=== PATIENT | female | born 1975 | race Caucasian/White ===

== ENCOUNTER 2025-03-22 07:45 | Day surgery (SDC) | payer MEDICAID, SELFPAY ==
--- NOTE | 2025-03-11 14:43 | ESHP_ITS ---
RE: CODY LUJAN : 1975 DATE OF ADMISSION: 03/22/2025 HISTORY OF PRESENT ILLNESS: This is a 49-year-old 2, para 2 who has abnormal uterine bleeding and an endometrial polyp, who presents for surgical removal and endometrial ablation. ALLERGIES: NO KNOWN DRUG ALLERGIES. MEDICATIONS: Ozempic 0.25 mg subcutaneously weekly. PAST MEDICAL HISTORY: Type 2 diabetes mellitus, genuine stress urinary incontinence. SOCIAL HISTORY: She is . She is a smoker. She denies any alcohol or drug use. PAST MEDICAL HISTORY: Anxiety, gastroesophageal reflux disease, seasonal allergies, obesity, hypertension. OBSTETRIC HISTORY: Two previous full-term normal vaginal deliveries. PAST SURGICAL HISTORY: Denies. REVIEW OF SYSTEMS: She denies any chest pain, palpitations, cough, fever, shortness of breath or lower extremity pain. PHYSICAL EXAMINATION: VITAL SIGNS: Blood pressure 144/76, heart rate 78, respirations 18, temperature 98.6. Weight 236 pounds. HEENT: Oropharynx and sclerae are clear. LUNGS: Clear to auscultation bilaterally. HEART: Regular rate and rhythm. ABDOMEN: No scars noted. EXTREMITIES: Nontender. SKIN: No gross rashes or lesions. NEUROLOGIC: No focal deficit. ASSESSMENT AND PLAN: Abnormal uterine bleeding and endometrial polyp. PLAN: Hysteroscopy, MyoSure removal of endometrial polyp, fractional dilatation and curettage, NovaSure endometrial ablation. Informed consent was obtained. The patient was made aware of the risks, complications, alternatives, benefits of the proposed procedure, and she agrees. She is aware of the risk of injury to bowel and bladder, adjacent organs, pulmonary embolism, deep vein thrombosis, pelvic infection, reoperation to repair injury to internal organs, anesthesia complications, the possibility that laparotomy needs to be performed to repair organs or control bleeding and the possibility the procedure is not able to be completed due to severe adhesions or technical difficulties. DT: 12:36:33 TT: 14:41:00 Ref: [id number] - TID: [id number] MTDD
[2025-03-21 07:51] VITALS: BMI 40.7
--- NOTE | 2025-03-21 08:14 | EKG_ITS ---
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
[2025-03-21 09:50] LABS: Basophils # (Auto) 0.1 Thou/mm3 (0.0-0.2); Basophils % (Auto) 1 % (0-2.5); Eosinophils # (Auto) 0.4 Thou/mm3 (0.0-0.5); Eosinophils % (Auto) 4 % (0-10); Hematocrit 40.1 % (36.0-46.0); Hemoglobin 13.9 g/dL (12.0-16.0); Immature Granulocytes Auto 0.04 Thou/mm3 (0.00-0.00); Lymphocytes # (Auto) 2.2 Thou/mm3 (1.0-4.8); Lymphocytes % (Auto) 22 % (10-50); Mean Corpuscular HGB Conc 34.7 g/dl (31.0-37.0); Mean Corpuscular Hemoglobin 31.7 pg (25.0-35.0); Mean Corpuscular Volume 91 fL (80-100); Monocytes # (Auto) 0.7 Thou/mm3 (0.0-0.8); Monocytes % (Auto) 7 % (0-12); Neutrophils # (Auto) 6.5 Thou/mm3 (1.8-7.7); Neutrophils % (Auto) 65 % (37-80); Nucleated Red Blood Cell # 0.00 Thou/mm3 (0.00-0.00); Nucleated Red Blood Cell % 0 /100 WBC (0); Platelet Count 278 Thou/mm3 (140-440); RDW Standard Deviation 41.0 fL (36.4-46.3); Red Blood Count 4.39 Miln/mm3 (4.00-5.20); White Blood Count 10.0 Thou/mm3 (3.6-11.0)
[2025-03-21 09:58] LABS: INR 1.0 (0.9-1.3); Partial Thromboplastin Time 24.2 Seconds (22.0-36.0); Prothrombin Time 10.5 Seconds (9.0-12.2)
[2025-03-21 10:01] LABS: Alanine Aminotransferase 11 U/L (10-49); Albumin, Serum 3.9 gm/dL (3.5-5.0); Albumin/Globulin Ratio 1.4 (1.2-2.2); Alkaline Phosphatase 50 U/L (46-116); Anion Gap 7 (7-16); Aspartate Amino Transferase 16 U/L (0-34); BUN/Creatinine Ratio 12 Ratio (12-20); Beta HCG,Quantitative < 1 mIU/mL (<5.0); Bilirubin,Total 0.4 mg/dL (0.3-1.2); Blood Urea Nitrogen 7 mg/dL (9-23); Calcium 9.0 mg/dL (8.3-10.6); Calcium (Corrected) 9.1 mg/dL (8.5-10.1); Carbon Dioxide 28.1 mMol/L (20.0-31.0); Chloride 105 mMol/L (98-107); Creatinine (Component) 0.6 mg/dL (0.6-1.3); Estimated Creatinine Clearance 137.4 mL/min (>60); Globulin 2.8 gm/dL (2.3-3.5); Glucose 132 mg/dL (74-106); Osmolality,Calculated 279 (275-295); Potassium 4.3 mMol/L (3.4-5.1); Sodium 140 mMol/L (136-145); Total Protein 6.7 gm/dL (5.7-8.2); eGFR > 60 See Note
[2025-03-22] VITALS (7 sets, daily range): BP systolic 104–156; BP diastolic 67–98; PULSE 67–84; RESP 14–19; TEMP 36.3–36.5; O2SAT 95–96; BMI 40.5
[2025-03-22] MEDS: RINGERS LACTATED 1000 ML 1,000 ML 30 ML IV (08:15)
--- NOTE | 2025-03-22 10:05 | PD.GYNPROC ---
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 She was placed in the dorsal lithotomy position and prepped and draped the usual sterile fashion.? A timeout was performed.? A bivalve speculum was inserted.? A single-tooth tenaculum was used to grasp the anterior lip of the cervix.? The uterine cavity was sounded to 7.5 cm.? The cervical length measured 3.5 cm.? The cervix was dilated to accommodate the 5.5 mm Omni hysteroscope.? Using the Aquilex system and normal saline as the distending media the hysteroscopy was performed and three endometrial polyps ?were visualized in the uterine cavity.? Measuring 3 x 4 mm each. ? The Using the MyoSure Reach device the polypectomies were performed and specimens sent to pathology. The fluid deficit at the end of the MyoSure procedure was 100.? The endocervix was curetted with the Kevorkian curette and specimen sent to pathology.? The uterine cavity was curetted with a 5 mm curette and specimen sent to pathology.? The NovaSure catheter was plugged into the controller.? It went through its purge cycle.? The array was deployed and was found to be complete and intact with the width meter working properly. The Novasure catheter was appropriately seated in the uterine cavity.? The cavity length was 4.0 cm, ?the cavity width was 4.8 cm the power setting was 106 W.? The carbon dioxide cavity integrity assessment test was performed.? The uterine cavity was intact.? The controller was enabled and the ablation was performed for a total of 1 minute and 27 seconds before the controller shut off.? The array was retracted into the sheath and the catheter was removed from the uterine cavity.? The array was redeployed and found to be complete and intact.? There was bleeding at the anterior lip of the cervix at the site of the tenaculum and using the Bovie cautery hemostasis was achieved.? There was no bleeding at the end of the procedure.? All instruments were removed from the vagina.? She was reversed from general anesthesia in supine position and transferred to the cover room in stable condition.? She tolerated the procedure well.? Counts were correct.? I discussed with the patient's family the nature of her condition, the intraoperative findings, the expectation for recovery, all questions answered. Specimen: other (1. endometrial polyps 2. endocervical curettings 3. endometrial currettings. ) Complications: none Surgical staff Operation Date: 03/22/25 10:15 Case Staff Anesthesiologist: Tate Novak Diagnosis Discharge Diagnosis (1) Status post endometrial ablation: Status: Acute (2) Abnormal uterine bleeding due to endometrial polyp: Status: Acute Problem List Completed Was Problem List Reviewed/Reconciled?: Yes
--- NOTE | 2025-03-22 10:10 | SUR.PHASEI ---
pt received from OR in recovery bay 1. pt obtunded, breathing unlabored on oxymask 8l, oral airway in place. v/s stable. pt dressing peripad cdi. report received from Dr. Novak and Shahid GAVIRIA.
--- NOTE | 2025-03-22 10:30 | SUR.PHASEI ---
pt able to tolerate oral fluids without difficulty swallowing or nausea/vomiting.
--- NOTE | 2025-03-22 11:02 | SUR.PHASEII ---
pt awake and alert, breathing unlabored on room air. v/s stable. pt dressing peripad cdi. pt able to ambulate wheelchair with steady gait. d/c instructions given with Miguel in room, all questions answered. pt d/c via wheelchair with all belongings.
== END 2025-03-22 11:02 | disposition home or self-care (01) ==
PROVIDERS: PCP Physician Assistant; Referring Provider Specialist; Visit Provider Specialist
PROC: 0U5B8ZZ Destruction of Endometrium, Via Natural or Artificial Opening Endoscopic (ICD-10-PCS; CPT 58563; principal; 2025-03-22 10:00)
DX: N93.9 Abnormal uterine and vaginal bleeding, unspecified (principal); N84.0 Polyp of corpus uteri; Z01.810 Encounter for preprocedural cardiovascular examination; F17.200 Nicotine dependence, unspecified, uncomplicated
CPT/HCPCS: 58563; 36415; 80053; 84702; 85025; 85610; 85730; 86850; 86900; 86901; 93005; A4217; A4649; J0131; J0690; J1100; J1885; J2250; J2405; J2704; J3010; J7120